=== PATIENT | female | born 1950 | race Hispanic/Latino ===

== ENCOUNTER 2018-02-09 06:18 | Day surgery (SDC) | payer MEDICARE ==
[~2018-02-09] VITALS: Ht 154.9 cm; Wt 85.5 kg
[~2018-02-09 06:18] MED LIST: SODIUM CHLORIDE 0.9% 1000ML 1,000 ML IV ONE
[2018-02-09 07:16] VITALS: BP_SYST 167
[2018-02-09] MEDS ORDERED: CHOL500050 PO ×2 (07:38)
[2018-02-09] MEDS ORDERED: AMLO10TA6 PO (07:38)
[2018-02-09] MEDS ORDERED: ASPI-555 PO (07:38)
[2018-02-09] MEDS ORDERED: LOSA1TAB54 PO (07:38)
[2018-02-09] MEDS ORDERED: PROPOFOL 10 MG/ML 20ML VIAL IV ONE (08:06)
[2018-02-09] MEDS ORDERED: LIDOCAINE HCL-MPF 2% 5ML VIAL ONE (08:06)
[2018-02-09 08:30] VITALS: BP 126/71
[2018-02-09 08:35] VITALS: BP 116/65
[2018-02-09 08:41] VITALS: BP_SYST 167
[2018-02-09 08:57] VITALS: BP 109/73
== END 2018-02-09 09:05 | disposition home or self-care (01) ==
LOC: DAH 06:18 → ENDO 06:18
PROVIDERS: ATTEND Internal Medicine Gastroenterology
DX: Z12.11 Encounter for screening for malignant neoplasm of colon (principal); K63.5 Polyp of colon; K62.1 Rectal polyp; K29.50 Unspecified chronic gastritis without bleeding; K57.30 Diverticulosis of large intestine without perforation or abscess without bleeding; K64.1 Second degree hemorrhoids; I10 Essential (primary) hypertension; Z98.51 Tubal ligation status; Z98.890 Other specified postprocedural states; Z79.82 Long term (current) use of aspirin
CPT/HCPCS: 43239; 45380; 45385; 88305; 88312; 93005; A4606; J2704; J3490; J7030